=== PATIENT | male | born 1980 | race Asian ===

== ENCOUNTER 2020-11-03 01:04 | Emergency (ER) | payer OTHER ==
[~2020-11-03] VITALS: Ht 165.1 cm; Wt 81.6 kg
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
[2020-11-03] MEDS ORDERED: CEPH500C2 PO (01:28)
[2020-11-03] MEDS ORDERED: TDAP DIPH,PERTUSS,TET VAC/PF 0.5 ML DISP.SYRIN IM ONE ×2 (01:30→01:46)
[2020-11-03] MEDS ORDERED: CEphaleXIN 500 MG CAPSULE PO ONE (01:30)
[2020-11-03] MEDS ORDERED: CEphaleXIN 500 MG CAPSULE ONE (01:45)
--- NOTE | 2020-11-03 01:50 | NUR ---
Patient discharged to home in stable condition. Written and verbal after care instructions given. Patient verbalizes understanding of instructions. Stressed follow up or return to ER for worsening s/s. Denies dizziness, headache. Walks w/ steady gait.
[2020-11-03 02:19] VITALS: BP 138/80
== END 2020-11-03 01:50 | disposition home or self-care (01) ==
LOC: ER 01:24
DX: S09.90XA Unspecified injury of head, initial encounter (principal); S00.81XA Abrasion of other part of head, initial encounter; Y00.XXXA Assault by blunt object, initial encounter; Y92.89 Other specified places as the place of occurrence of the external cause; Y99.8 Other external cause status; R03.0 Elevated blood-pressure reading, without diagnosis of hypertension
CPT/HCPCS: 90715; A4217; A4663